=== PATIENT | male | born 2000 | race African-American/Black ===

== ENCOUNTER 2021-05-13 11:58 | Emergency (ER) | payer OTHER, MEDICAID ==
[~2021-05-13] VITALS: Ht 182.9 cm; Wt 181.0 kg
[2021-05-13] MEDS ORDERED: IBUPROFEN 600MG TABLET PO STA (12:42)
[2021-05-13 13:34] VITALS: BP 144/98
[2021-05-13] MEDS ORDERED: CYCL5TAB PO (13:47)
[2021-05-13] MEDS ORDERED: IBUP-2030 PO (13:47)
== END 2021-05-13 14:10 | disposition home or self-care (01) ==
LOC: ER 12:40
DX: M25.562 Pain in left knee (principal); M25.532 Pain in left wrist; J45.909 Unspecified asthma, uncomplicated; E66.9 Obesity, unspecified; Z68.43 Body mass index [BMI] 50.0-59.9, adult; V43.62XA Car passenger injured in collision with other type car in traffic accident, initial encounter; Y93.89 Activity, other specified; Y92.488 Other paved roadways as the place of occurrence of the external cause
CPT/HCPCS: 73090; 73110; 73562; 99284